=== PATIENT | female | born 1965 | race Caucasian/White ===

== ENCOUNTER 2024-07-07 12:19 | Emergency (ER) | payer OTHER, SELFPAY ==
--- NOTE | 2024-07-07 12:15 | RT.EKG_ITS ---
APPROVED REPORT Exam: Resting ECG Reason for Exam: Chest pain Patient Location: E HR:64 bpm ECG Measurements Heart Rate 64 AXIS CA 144 P 46 QRSd 88 QRS 48 QT 414 T 44 QTc 427 Conclusion Sinus rhythm 64 normal axis no stemi
[2024-07-07 12:22] VITALS: BP 187/96; PULSE 70; RESP 14; TEMP 36.7; O2SAT 98
--- NOTE | 2024-07-07 12:45 | DI.CT_ITS ---
Exam(s) CT RENAL COLIC WO EXAM: CT RENAL COLIC WO CLINICAL HISTORY: flank pain. TECHNIQUE: Imaging Protocol: Axial computed tomography images with coronal and sagittal reformatted images were created and reviewed CONTRAST MATERIAL: Intravenous: none Oral: None COMPARISON: No exams were available for comparison FINDINGS: VISUALIZED LUNG BASES: Mild subpleural increased markings in both lower lobes posterior basal segment s. No associated pleural effusions.. ABDOMEN There are increased subcutaneous markings over the posterior lateral right flank. No drainable fluid collection at this level. Similar findings are not seen in the subcutaneous tissues elsewhere in th is study. There is no ascites. LIVER: There are no obvious focal hepatic lesions evident of this noninfused study. GALLBLADDER/BILIARY: No obvious gallbladder pathology. CBD is not dilated. PANCREAS: No evidence of pancreatic mass nor dilatation of the pancreatic duct. SPLEEN: Spleen is not enlarged. No obvious intrasplenic lesions. ADRENALS: Right adrenal gland unremarkable. Mild thickening of the left adrenal gland noted. No alissa ly discernible mass. KIDNEYS:No cysts evident. No solid renal masses. No calculi nor hydronephrosis.. Ureters are not dil ated. Urinary bladder unremarkable. No masses nor radiopaque calculi within the lumen evident. ABDOMINAL AORTA: Mild fusiform focal dilatation of the infrarenal abdominal aorta but maximum diamete r at this levels only 2 cm. Common iliac arteries are calcified but not enlarged. LYMPH NODES: There is no retroperitoneal nor paraaortic adenopathy. ABDOMINAL WALL: No evidence of significant anterior abdominal wall nor inguinal hernia. GI: There is no evidence of bowel obstruction, free air, nor abscess. PELVIS: LYMPH NODES: There is no intrapelvic nor inguinal adenopathy. GI: No evidence of appendicitis.No significant sigmoid diverticular disease. URINARY BLADDER: No calculi nor obvious masses evident REPRODUCTIVE: Uterus and adnexal regions appear unremarkable. No free fluid in the pelvis. OSSEOUS: No significant osseous lesions. Chronic advanced disc space narrowing L5-S1 level noted. No listhesis. Calcification within the chayo tral discs at L1-2 and T11-T12 and T10-T11 noted. IMPRESSION: 1. No radiopaque urinary tract calculi seen. No evidence of urinary tract obstruction. Also no radi opaque calculi evident in the nondistended urinary bladder. 2. There is mild focal fusiform dilatation of the infrarenal abdominal aortic. However, maximum diam eter at this level is only 2 cm. 3. There is relatively focal subcutaneous fat stranding in the posterior lateral right flank region ( series 3/image 56). There is, however, no drainable fluid collection at this level. No radiopaque f oreign bodies evident. The overlying skin does appear thickened. Clinical correlation recommended Called by myself to ER physician 07/07/2024 2:25 p.m. RADIATION DOSE DELIVERED: Total DLP DATA REPOSITORY: All CT scans at this facility are submitted to the National Radiology Data Registry (NRDR) Dose Index Registry (DIR) with the [employer] (A[employer]). RADIATION OPTIMIZATION: All CT scans at this facility use at least one of these dose optimization te chniques: automated exposure control; mA and/or kV adjustment per patient size (includes targeted exa ms where dose is matched to clinical indication); or iterative reconstruction.
[2024-07-07] MEDS: MORPHine 4 MG/ML SYR IVP (13:03)
[2024-07-07 13:04] VITALS: RESP 18
[2024-07-07] MEDS: Ondansetron 4 MG/2 ML VIAL IVP (13:04)
[2024-07-07 13:23] LABS: Abs Immature Grans 0.01 10^3/uL (0.0-0.06); Absolute Basophil Count 0.07 10^3/uL (0.0-0.2); Absolute Eosinophil Count 0.14 10^3/uL (0.0-0.7); Absolute Lymphocyte Count 1.41 10^3/uL (1.2-3.4); Absolute Monocyte Count 0.33 10^3/uL (0.1-0.8); Absolute Neutrophil Count 3.41 10^3/uL (1.2-6.7); Basophils % 1.3 %; Eosinophils % 2.6 %; HCT 45.6 % (36.0-46.0); HGB 15.4 g/dL (11.2-15.7); Immature Grans % 0.2 %; Lymphocytes % 26.3 %; MCH 32.8 pg (27.0-33.0); MCHC 33.8 % (32.0-36.0); MCV 97 fL (80-95); MPV 10.2 fL (8.0-11.0); Monocytes % 6.1 %; Neutrophils % 63.5 %; Platelet Count 226 10^3/uL (130-400); RBC 4.69 10^6/uL (3.93-5.22); RDW 12.7 % (11.7-14.6); RDW-SD 45.1 fL; WBC 5.37 10^3/uL (4.4-10.8)
[2024-07-07 13:30] LABS: ALT 20 U/L (14-59); AST 23 U/L (15-37); Alkaline Phosphatase 102 U/L (46-116); BUN 11 mg/dL (7-18); Bilirubin, Total 0.45 mg/dL (0.2-1.0); Calcium 9.1 mg/dL (8.5-10.1); Chloride 104 mmol/L (98-107); Estimated GFR 65.71 (mL/min/1.73m2); Glucose 93 mg/dL (74-106); Potassium 3.6 mmol/L (3.5-5.1); Sodium 141 mmol/L (136-145); Total Protein 7.5 g/dL (6.4-8.2)
[2024-07-07] MEDS: Normal Saline 1,000 ML 1000 ML IV (13:50)
[2024-07-07 13:51] VITALS: BP 195/84; PULSE 63; RESP 18; O2SAT 94
[2024-07-07 13:54] VITALS: RESP 18; TEMP 36.7; O2SAT 94
[2024-07-07 15:00] LABS: Bilirubin Negative (Negative); Blood Moderate (Negative); Clarity Clear (Clear); Glucose Negative (Negative); Ketones Negative (Negative); Leukocyte Esterase Negative (Negative); Nitrite Negative (Negative); Urobilinogen 0.2 mg/dL (Up to 0.2); pH 5.5 (5-8)
[2024-07-07 15:16] LABS: Bacteria Negative HPF (Negative); C & S Indicated? No; Crystals Negative HPF (Negative); Epithelial Cells Rare HPF (Negative); Mucus Trace (Negative); WBC Negative HPF (0-5)
--- NOTE | 2024-07-07 15:41 | ED.GENADUL_ITS ---
Discharge Plan Disposition Patient Disposition: Home Condition: Stable Discharge Details Clinical Impression: Acute flank pain, Hematuria, Hypertension Primary Care Provider: Unknown,Unknown ED Provider: Kiran Singh Home Meds and New Rx's Prescriptions: New tamsulosin [Flomax] 0.4 mg capsule 0.4 mg PO DAILY Qty: 30 0RF amlodipine [Norvasc] 5 mg tablet 5 mg PO DAILY Qty: 30 1RF Discharge Instructions Instructions: Flank Pain ED Additional Instructions: * Your CT scan does not demonstrate signs of a kidney stone, but your urinalysis does indicate that you might have passed a stone already. Monitor symptoms, increase water intake and start Flomax * The CT did have some issue that could possibly be superficial infection in your skin on your flank, if you develop any redness or overlying skin changes or significant pain in that area, please return for reevaluation but at this time there is no clinical evidence that you have an infection there. * Blood pressure is noted to be elevated, given the severity of his elevation, and your lack of access to primary care, will start blood pressure medication. If possible get a blood pressure cuff from the pharmacy and keep a log of your blood pressure to monitor the symptoms and follow-up with primary care provider when you return home. HPI General Date/Time Provider Initiated Documentation: 07/07/24 12:32 . Limitations to Documentation: no limitations . Information obtained by: patient . HPI Narrative: 59-year-old female without known diagnosed medical problems presents after ref erral from urgent care for right-sided flank pain. Patient reports that she is in the area for work and does not live appear. She states that the symptoms started earlier today. The symptoms are constant, but wax and wane in severity with intermittent severe refluxes of pain. She reports the pain Starts in her right sided back and radiates to the front comes up to the right shoulder. The symptoms are not associated with any chest pain, shortness of breath, mild nausea but no vomiting. Denies any changes in her urine. She states that she cannot sit still or get comfortable Related Data Home Medications ?Medication ?Instructions ?Recorded ?Confirmed amlodipine 5 mg tablet (Norvasc) 5 mg PO DAILY #30 tabs 07/07/24 tamsulosin 0.4 mg capsule (Flomax) 0.4 mg PO DAILY #30 caps 07/07/24 Previous Rx's ?Medication ?Instructions ?Recorded amlodipine 5 mg tablet (Norvasc) 5 mg PO DAILY #30 tabs 07/07/24 tamsulosin 0.4 mg capsule (Flomax) 0.4 mg PO DAILY #30 caps 07/07/24 Allergies Allergy/AdvReac Type Severity Reaction Status Date / Time Penicillins Allergy Intermediate Skin Rash Verified 07/07/24 12:26 General Stated Complaint: Chest Pain ANA: 2 Exam Narrative Exam Narrative: Review of Systems: All systems reviewed & are unremarkable except as noted in HPI and below Well-developed, appears uncomfortable NCAT PERRL, normal conjunctiva Multiple missing teeth RRR Hypertensive Unlabored respiratory effort Nondistended abdomen no right upper quadrant tenderness, guarding or rebound, no CVA tenderness, no overlying skin change Extremities w/o deformity, no cyanosis, no edema No rashes or lesions. no focal neurologic deficits Appropriate mood and affect Course Vital Signs Vital signs: Vital Signs Temperature 36.7 C 07/07/24 12:22 Pulse 70 07/07/24 12:22 Respiratory Rate 14 07/07/24 12:22 Blood Pressure 187/96 H 07/07/24 12:22 Pulse Oximetry 98 07/07/24 12:22 Temperature 36.7 C 07/07/24 13:54 Temperature Source Oral 07/07/24 13:54 Pulse 63 07/07/24 13:51 Respiratory Rate 18 07/07/24 13:54 Respiratory Effort Normal, Non-Labored 07/07/24 13:54 Respiratory Depth Normal 07/07/24 13:54 Respiratory Pattern Normal 07/07/24 13:54 Blood Pressure 195/84 H 07/07/24 13:51 Pulse Oximetry 94 07/07/24 13:54 Oxygen Delivery Method Room Air 07/07/24 13:54 Oxygen Flow Rate 0 07/07/24 13:54 Pain Level 1 07/07/24 13:54 Lab/Test Results Lab/Test Results: Laboratory Tests Range/Units 07/07/24 07/07/24 13:05 14:50 WBC (4.4-10.8) 10^3/uL 5.37 RBC (3.93-5.22) 10^6/uL 4.69 Hgb (11.2-15.7) g/dL 15.4 Hct (36.0-46.0) % 45.6 MCV (80-95) fL 97 H MCH (27.0-33.0) pg 32.8 MCHC (32.0-36.0) % 33.8 RDW (11.7-14.6) % 12.7 Plt Count (130-400) 10^3/uL 226 MPV (8.0-11.0) fL 10.2 Immature Gran % % 0.2 Neutrophils % % 63.5 Lymphocytes % % 26.3 Monocytes % % 6.1 Eosinophils % % 2.6 Basophils % % 1.3 Nucleated RBC % (0.0-0.3) % 0.0 Absolute Neutrophils (1.2-6.7) 10^3/uL 3.41 Absolute Lymphocytes (1.2-3.4) 10^3/uL 1.41 Absolute Monocytes (0.1-0.8) 10^3/uL 0.33 Absolute Eosinophils (0.0-0.7) 10^3/uL 0.14 Absolute Basophils (0.0-0.2) 10^3/uL 0.07 Sodium (136-145) mmol/L 141 Potassium (3.5-5.1) mmol/L 3.6 Chloride (98-107) mmol/L 104 Carbon Dioxide (21.0-32.0) mmol/L 26.0 Anion Gap (3-11) mmol/L 11.0 BUN (7-18) mg/dL 11 Creatinine (0.55-1.02) mg/dL 1.0 Est GFR (CKD-EPI 2020) (mL/min/1.73m2) 65.71 Glucose (74-106) mg/dL 93 Calcium (8.5-10.1) mg/dL 9.1 Total Bilirubin (0.2-1.0) mg/dL 0.45 AST (15-37) U/L 23 ALT (14-59) U/L 20 Alkaline Phosphatase (46-116) U/L 102 Total Protein (6.4-8.2) g/dL 7.5 Albumin (3.4-5.0) g/dL 4.0 Urine Color (Yellow) Yellow Urine Clarity (Clear) Clear Urine pH (5-8) 5.5 Ur Specific [place] (1.005-1.025) 1.010 Urine Protein (Neg-Trace) mg/dL Negative Urine Ketones (Negative) mg/dL Negative Urine Blood (Negative) Moderate H Urine Nitrite (Negative) Negative Urine Bilirubin (Negative) Negative Urine Urobilinogen (Up to 0.2) mg/dL 0.2 Ur Leukocyte Esterase (Negative) Negative Urine RBC (0-2) HPF 5-10 H Urine WBC (0-5) HPF Negative Ur Epithelial Cells (Negative) HPF Rare Urine Crystals (Negative) HPF Negative Urine Bacteria (Negative) HPF Negative Urine Mucus (Negative) Trace Ur Culture Indicated? No Urine Glucose (Negative) mg/dL Negative Medical Decision Making Emergent evaluation of right flank pain. Initial differential includes renal colic, cholelithiasis or cholecystitis do have a lower suspicion and she does not have any focal right upper quadrant pain. She does have elevated blood pressure so would consider possible aortic pathology of a low suspicion for ACS given her normal EKG. Urinalysis and lab work were obtained. She has normal renal function, no elevated white blood cell count. Her urine does demonstrate hematuria without any signs of infection. CT imaging obtained, there is no defi nitive renal stone observed though in the presence of the hematuria and her symptoms, I do suspect that possibly there was a passed stone. The radiologist appreciated some soft tissue stranding but no definitive abscess. She has no tenderness, no overlying skin change no elevated white blood cell count. I have a low suspicion for infection causing symptoms in that area. She received pain medication and reports complete resolution of her symptoms. I do feel that this was likely passed kidney stone. Will prescribe Flomax. Recommended increasing water. The patient does have persistent blood pressure elevation and she has not seen a doctor in many years and will not have access to primary care while she does appear temporarily. Given these risks to her, I will prescribe Norvasc. I have advised that if she can get a blood pressure cuff to monitor her blood pressure that would be fantastic. Return precautions advised. Quality:SDOH Health Related Social Needs: No Data to Display PFSH All Active Problems Hypertension (Chronic) Hematuria (Acute) Acute flank pain (Acute) Social History Smoking/Tobacco Use Status: Current every day Tobacco Type: cigarettes Years smoked: 40 Smoking risk assessment performed?: Yes Alcohol Intake: former Drug use: Never Substance use type: does not use Housing: house Do you feel safe at home: Yes Do you feel safe in your relationship?: Yes
[2024-07-07 15:47] VITALS: BP 215/122; PULSE 72; O2SAT 96
== END 2024-07-07 15:53 | disposition home or self-care (01) ==
LOC: ER 15:36
PROVIDERS: Emergency Provider Emergency Medicine
DX: R10.31 Right lower quadrant pain (principal); R31.9 Hematuria, unspecified; I10 Essential (primary) hypertension
CPT/HCPCS: 36415; 80053; 93005; 96361; 96374; 96375; 99284; 74176; 81003; 81015; 85025; 93010; 99283; J2270; J2405